=== PATIENT | male | born 1960 | race African-American/Black ===

== ENCOUNTER 2017-02-25 15:57 | Emergency (ER) | payer OTHER ==
[~2017-02-25] VITALS: Ht 180.3 cm; Wt 127.2 kg
[2017-02-25 17:32] LABS: HEMATOCRIT 41.6 % (38.0-50.0); MCH 27.1 PG (29.0-34.0); MCHC 32.7 G/DL (30.0-36.0); MEAN PLAT.VOLUME 10.2 uM^3 (9.0-12.4); PLATELET COUNT 243 K/uL (156-360); RBC DIS.WIDTH-CV 15.6 % (11.8-14.6); RED BLOOD COUNT 5.01 M/uL (4.00-5.50); WHITE BLOOD COUNT 7.4 K/uL (4.1-10.2)
[2017-02-25 17:41] LABS: CHLORIDE 103 mEq/L (99-109); POTASSIUM 4.6 mEq/L (3.7-5.4); SODIUM 139 mEq/L (136-147)
[2017-02-25 17:43] LABS: GLUCOSE 95 mg/dL (70-99)
[2017-02-25 17:44] LABS: ANION GAP 12 MEQ/L (2-14)
[2017-02-25 17:47] LABS: GFR ESTIMATE (CALCULATED) > 59 mL/min/; UREA NITROGEN (BUN) 11 mg/dL (9-23)
[2017-02-25 23:29] VITALS: BP 159/102
== END 2017-02-25 23:30 | disposition designated cancer center or children's hospital, planned readmission (85) ==
LOC: EME 15:57
PROVIDERS: Emergency Medicine
DX: M54.5 Low back pain (principal); Z87.891 Personal history of nicotine dependence
CPT/HCPCS: 72148; 80048; 85027; 99281; 99285; J1885; J2270